=== PATIENT | male | born 1955 | race American Indian/Alaskan Native ===

== ENCOUNTER 2016-09-09 20:11 | Emergency (ER) | payer BC ==
[2016-09-09] MEDS ORDERED: Ondansetron INJ* 2 MG/ML VIAL IV ONE (21:14)
[2016-09-09] MEDS ORDERED: NS 0.9% 1000 ML* 1,000 ML IV ONE (21:14)
[2016-09-09 22:11] LABS: Hematocrit 41 % (42-52); Hemoglobin 14.1 g/dl (14.0-18.0); Mean Corpuscular HGB Conc 34 g/dl (31-36); Mean Corpuscular Hemoglobin 30 pg (27-31); Mean Corpuscular Volume 89 fL (80-94); Mean Platelet Volume 8 um3 (7.4-10.4); Red Blood Count 4.64 10^6/ul (4.0-5.4); Red Cell Distribution Width 13 % (10.5-15); White Blood Count 10.5 10^3/ul (3.5-10.8)
--- NOTE | 2016-09-09 22:19 | ED ---
I, Oh,Soohevangelinaun, scribed for Melquiades David MD on 09/09/16 at 2120 . Dizziness - HPI Summary HPI Summary: This 61 y/o male presents to ED for acute on recurrent vertigo since 1300 PM this afternoon. Vertigo is intermittent and is brought on by head movement. "Every time I put my head down I threw up". Positive n/v x2 today. Pt reports that he has had intermittent vertigo since he had concussion 5 years ago, but the previous episodes have been mild and brief. Pt states that episodes today were longer lasting and more severe. Pt did not control n/v with any medications. PMHx includes HTN, HLD, DM as well as known vertigo and concussion. - History Of Current Complaint Chief Complaint: EDDizziness Stated Complaint: N/V HEADACHE Time Seen by Provider: 09/09/16 21:07 Hx Obtained From: Patient, Medical Records Timing: Minutes Severity Initially: Moderate Severity Currently: None Character: Head Spinning Aggravating Factor(s): Change In Head Position Alleviating Factor(s): Nothing Associated Signs And Symptoms: Positive: Nausea, Vomiting. Negative: Fever - Allergies/Home Medications Allergies/Adverse Reactions: Allergies Allergy/AdvReac Type Severity Reaction Status Date / Time No Known Allergies Allergy Verified 07/05/14 07:51 PMH/Surg Hx/FS Hx/Imm Hx Endocrine/Hematology History: Reports: Hx Diabetes - TYPE 2 Cardiovascular History: Reports: Hx Hypertension - ON MEDS, Other Cardiovascular Problems/Disorders - WPW - ABLATION ABOUT 10 YEARS AGO, NO PROBLEMS SINCE Respiratory History: Reports: Hx Sleep Apnea - NO MACHINES GI History: Reports: Hx Gastroesophageal Reflux Disease - WITH LAYING DOWN AFTER FULL MEAL, NONE IN YEARS Sensory History: Reports: Hx Contacts or Glasses - READING GLASSES Denies: Hx Hearing Aid Opthamlomology History: Reports: Hx Contacts or Glasses - READING GLASSES - Surgical History Surgery Procedure, Year, and Place: TONSILLECTOMY IN THE 3RD GRADE. SINUS SURGERY X2. CARDIAC ABLATION FOR [facility], [facility] [place] UMBILICAL HERNIA - [facility] Hx Anesthesia Reactions: No - Immunization History Date of Tetanus Vaccine: unknown Date of Influenza Vaccine: 2014 Infectious Disease History: No Infectious Disease History: Denies: Traveled Outside the [place] in Last 30 Days - Family History Known Family History: Positive: Diabetes - type II - Social History Alcohol Use: None Hx Substance Use: No Substance Use Type: Reports: None Hx Tobacco Use: No Smoking Status (MU): Never Smoked Tobacco Review of Systems Negative: Fever Positive: Vomiting, Nausea Neurological: Other - "vertigo" dizziness All Other Systems Reviewed And Are Negative: Yes Physical Exam Triage Information Reviewed: Yes Vital Signs On Initial Exam: Initial Vitals Temp Pulse Resp BP Pulse Ox 97.1 F 81 16 175/101 96 09/09/16 20:16 09/09/16 20:16 09/09/16 20:16 09/09/16 20:16 09/09/16 20:16 Vital Signs Reviewed: Yes Appearance: Positive: Well-Appearing, No Pain Distress Skin: Positive: Warm Head/Face: Positive: Normal Head/Face Inspection Eyes: Positive: EOMI - no nystagmus, ANNA ENT: Positive: Normal ENT inspection Neck: Positive: Supple Respiratory/Lung Sounds: Positive: Clear to Auscultation, Breath Sounds Present Cardiovascular: Positive: RRR Abdomen Description: Positive: Nontender, Soft Bowel Sounds: Positive: Present Musculoskeletal: Positive: Strength/ROM Intact Neurological: Positive: Sensory/Motor Intact, Alert, Oriented to Person Place, Time, Normal Gait Psychiatric: Positive: Affect/Mood Appropriate - [place] Coma Scale Coma Scale Total: 15 Diagnostics - Vital Signs Vital Signs Temp Pulse Resp BP Pulse Ox 09/09/16 20:16 97.1 F 81 16 175/101 96 - Laboratory Lab Results: Lab Results 09/09/16 Range/Units 21:50 WBC 10.5 (3.5-10.8) 10^3/ul RBC 4.64 (4.0-5.4) 10^6/ul Hgb 14.1 (14.0-18.0) g/dl Hct 41 L (42-52) % MCV 89 (80-94) fL MCH 30 (27-31) pg MCHC 34 (31-36) g/dl RDW 13 (10.5-15) % Plt Count 225 (150-450) 10^3/ul MPV 8 (7.4-10.4) um3 Neut % (Auto) 78.6 (38-83) % Lymph % (Auto) 15.1 L (25-47) % [place] % (Auto) 4.4 (1-9) % Eos % (Auto) 0.1 (0-6) % Baso % (Auto) 1.8 (0-2) % Absolute Neuts (auto) 8.3 H (1.5-7.7) 10^3/ul Absolute Lymphs (auto) 1.6 (1.0-4.8) 10^3/ul Absolute Monos (auto) 0.5 (0-0.8) 10^3/ul Absolute Eos (auto) 0 (0-0.6) 10^3/ul Absolute Basos (auto) 0.2 (0-0.2) 10^3/ul Absolute Nucleated RBC 0 10^3/ul Nucleated RBC % 0 Result Diagrams: 09/09/16 21:50 09/09/16 21:50 Lab Statement: Any lab studies that have been ordered have been reviewed, and results considered in the medical decision making process. - EKG 2205 Cardiac Rate: NL - 79 bpm EKG Rhythm: Sinus Rhythm EKG Interpretation: LVH Re-Evaluation - Re-Evaluation First Eval Re-Evaluation Time: 23:36 Change: Improved Comment: Improved after zofran Dizzy Course/Dx - Diagnoses Provider Diagnoses: Vertigo Discharge - Discharge Plan Condition: Guarded Disposition: HOME Prescriptions: Meclizine TAB* [Antivert 12.5 TAB*] 25 mg PO TID #20 tab Patient Education Materials: Meclizine (By mouth), Vertigo (ED) Referrals: [facility] [Outside] - 2 Days Additional Instructions: Be sure to follow up with your primary care provider. Return to Emergency Room if your symptom(s) persist or worsen. The documentation as recorded by the Jl tarango Soohyun accurately reflects the service I personally performed and the decisions made by me, Melquiades David MD.
[2016-09-09 22:26] LABS: Albumin 4.3 g/dL (3.2-5.2); BUN/Creatinine Ratio 16.7 (8-20); Calcium 9.6 mg/dL (8.6-10.3); EGFR African American 89.1 (>60); EGFR Non-African American 69.3 (>60); Globulin 3.4 g/dL (2-4); Magnesium 1.7 mg/dL (1.9-2.7); Potassium 3.9 mmol/L (3.5-5.0); Total Bilirubin 0.6 mg/dL (0.2-1.0); Total Protein 7.7 g/dL (6.4-8.9)
[2016-09-09] MEDS ORDERED: Meclizine TAB* 12.5 MG PO ONE (23:36)
[2016-09-10 00:09] VITALS: BP 146/86
== END 2016-09-10 00:09 | disposition home or self-care (01) ==
LOC: ED 20:11
DX: R42 Dizziness and giddiness (principal); I10 Essential (primary) hypertension; E78.5 Hyperlipidemia, unspecified
CPT/HCPCS: 36415; 80053; 83605; 83735; 84484; 85025; 93005; 96360; 96374; 99283; A9270-GY; J2405